=== PATIENT | female | born 2005 | race African-American/Black ===

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

== ENCOUNTER 2025-03-07 21:15 | Emergency (ER) | payer MEDICAID ==
[~2025-03-07] VITALS: Ht 162.6 cm; Wt 61.0 kg
[2025-03-07 21:34] VITALS: TEMP 36.7; O2SAT 100
[2025-03-07] MEDS: LORAZEPAM 1MG TABLET PO ONE (22:38)
[2025-03-07 23:01] LABS: BASOPHILS % 0.5 % (0.0-2.0); EOSINOPHILS % 2.2 % (0.0-5.0); HEMATOCRIT. 37.2 % (36.0-48.0); HEMOGLOBIN. 11.9 g/dL (12.0-16.0); LYMPHOCYTES % 33.7 % (20.0-50.0); MEAN CORPUSCULAR HEMOGLOBIN 25.8 pg (28.0-32.0); MEAN CORPUSCULAR VOLUME 80.7 fL (81.0-99.0); MEAN PLATELET VOLUME 9.1 fl (7.4-10.4); MONOCYTES % 6.3 % (2.0-8.0); NEUTROPHILS % 57.3 % (40.0-76.0); PLATELET 319 x1000/uL (130-400); RED BLOOD CELL COUNT 4.61 mill/uL (4.2-5.4); RED CELL DISTRIBUTION WIDTH 16.8 % (11.6-14.6); WHITE BLOOD COUNT 8.3 x1000/uL (4.5-11.0)
[2025-03-07 23:11] LABS: HCG SCREEN NEGATIVE
[2025-03-07 23:17] LABS: TROPONIN I HIGH SENSITIVITY < 4 ng/L (3.0-34)
[2025-03-07 23:48] VITALS: BP 111/87; PULSE 87; RESP 16; O2SAT 100
== END 2025-03-07 23:52 | disposition home or self-care (01) ==
LOC: ER 21:15
DX: R06.02 Shortness of breath (principal); J45.909 Unspecified asthma, uncomplicated
CPT/HCPCS: 36415; 71045; 84484; 84703; 85025; 93005; 99285

== ENCOUNTER 2025-07-28 00:13 | Emergency (ER) | payer MEDICAID ==
[~2025-07-28] VITALS: Ht 167.6 cm; Wt 69.0 kg
[2025-07-28 00:19] VITALS: PULSE 68; RESP 18; O2SAT 100
[2025-07-28 00:33] VITALS: BP 119/80; TEMP 36.7; O2SAT 100
[2025-07-28 01:38] VITALS: TEMP 98
[2025-07-28] MEDS: ACETAMINOPHEN 500MG TABLET PO ONE (01:38)
[2025-07-28] MEDS: METOCLOPRAMIDE HCL 10MG TABLET PO ONE (01:38)
[2025-07-28] MEDS ORDERED: NAPR-1176 MT (03:06)
== END 2025-07-28 03:44 | disposition home or self-care (01) ==
LOC: ER 00:41
DX: R51.9 Headache, unspecified (principal); J45.909 Unspecified asthma, uncomplicated; Z79.899 Other long term (current) drug therapy
CPT/HCPCS: 99284; 70450; J8597